=== PATIENT | female | born 1990 | race Caucasian/White ===

== ENCOUNTER 2017-08-07 12:32 | Inpatient (IN) | payer MEDICAID ==
[2017-08-07] MEDS ORDERED: CARBOPROST 250 MCG INJ IM (15:00)
[2017-08-07] MEDS ORDERED: BUTORPHANOL 2 MG INJ IV (15:00)
[2017-08-07] MEDS ORDERED: LIDOCAINE 1% (MPF) 30 ML INJ INJ (15:00)
[2017-08-07] MEDS: LACTATED RINGER'S 1,000 ML IV ×4 (15:00→23:00)
[2017-08-07] MEDS ORDERED: MISOPROSTOL 200 MCG TAB PR (15:00)
[2017-08-07] MEDS ORDERED: METHYLERGONOVINE 0.2 MG INJ IM (15:00)
[2017-08-07] MEDS: AMPICILLIN 2 GM/NS (PMX) 100 ML IV (15:01)
[2017-08-07 15:06] LABS: ADD MAN DIFF? NO
[2017-08-07] MEDS: OXYTOCIN 30 UNITS/LR 500 ML IV (15:06)
[2017-08-07 15:09] LABS: WHITE BLOOD COUNT 11.3 10^3/ul (4.8-10.8)
[2017-08-07 15:09] LABS: BASOPHILS % 0.3 % (0.0-2.0); EOSINOPHILS # 0.1 10^3/ul (0.0-0.5); EOSINOPHILS % 0.5 % (0.0-7.0); HEMATOCRIT 39.5 % (37.0-47.0); LYMPHOCYTES # 2.1 10^3/ul (0.8-2.9); LYMPHOCYTES % 18.8 % (15.0-51.0); MEAN CORPUSCULAR HGB CONC 32.9 g/dl (32.0-37.0); MEAN CORPUSCULAR VOLUME 84.9 fl (82.0-101.0); MEAN PLATELET VOLUME 9.7 fl (7.4-10.4); MONOCYTE # 0.7 10^3/ul (0.3-0.9); MONOCYTES % 6.4 % (0.0-11.0); NEUTROPHIL # 8.2 10^3/ul (1.6-7.5); NEUTROPHILS % 73.2 % (39.0-77.0); PLATELET COUNT 302 10^3/UL (140-415); RED BLOOD COUNT 4.65 10^6/ul (4.20-5.40); RED CELL DISTRIBUTION WIDTH 14.6 % (11.5-14.5)
[2017-08-07 15:55] LABS: HEPATITIS B SURFACE ANTIGEN NEGATIVE (NEGATIVE)
[2017-08-07 16:08] LABS: INR 0.94; PARTIAL THROMBOPLASTIN TIME 27.2 Sec (25.0-35.0); PROTIME 12.7 Sec (11.9-14.9)
[2017-08-07] MEDS: AMPICILLIN 1 GM/NS (PMX) 50 ML IV ×2 (18:53→22:58)
[2017-08-07 20:10] LABS: RAPID PLASMA REAGIN NONREACTIVE (NR)
[2017-08-07] MEDS ORDERED: FENTAnyl 2MCG/ML-ROPIV 0.2% 100 ML (22:47)
[2017-08-07] MEDS ORDERED: NALOXONE (0.4 MG/ML) INJ IV (23:30)
[2017-08-07] MEDS ORDERED: DIPHENHYDRAMINE 50 MG INJ IV (23:30)
[2017-08-07] MEDS ORDERED: ONDANSETRON 4 MG INJ IV (23:30)
[2017-08-08] MEDS: AMPICILLIN 1 GM/NS (PMX) 50 ML IV ×3 (03:07→10:39)
[2017-08-08] MEDS: FENTAnyl 2MCG/ML-ROPIV 0.2% 100 ML BAG EPI (06:08)
[2017-08-08] MEDS: LACTATED RINGER'S 1,000 ML IV (07:39)
[2017-08-08] MEDS: OXYTOCIN 30 UNITS/LR 500 ML IV ×3 (11:21→19:01)
[2017-08-08] MEDS ORDERED: DIBUCAINE 1% 30 GM OINT PR (13:30)
[2017-08-08] MEDS ORDERED: ONDANSETRON 4 MG INJ IV (13:30)
[2017-08-08] MEDS ORDERED: ACETAMINOPHEN 325 MG TAB PO (13:30)
[2017-08-08] MEDS ORDERED: OXYCODONE/ASPIRIN (4.88/325) TAB PO ×2 (13:30)
[2017-08-08] MEDS ORDERED: HYDROCODONE/APAP (5/325) TAB PO ×2 (13:30)
[2017-08-08] MEDS: BENZOCAINE 20% 56 ML SPRAY TOP (15:54)
[2017-08-08] MEDS: LANOLIN 7 GM TUBE TOP (15:55)
[2017-08-08] MEDS: WITCH HAZEL/GLYCERIN PAD PR (15:56)
[2017-08-08] MEDS: IBUPROFEN 600 MG TAB PO ×2 (18:18→23:42)
[2017-08-08] MEDS: SENNA/DOCUSATE NA (8.6MG/50MG) TAB PO (21:27)
[2017-08-09] MEDS: IBUPROFEN 600 MG TAB PO ×3 (05:33→17:33)
[2017-08-09 08:22] LABS: ADD MAN DIFF? NO
[2017-08-09 08:28] LABS: WHITE BLOOD COUNT 11.6 10^3/ul (4.8-10.8)
[2017-08-09 08:28] LABS: BASOPHILS % 0.2 % (0.0-2.0); EOSINOPHILS # 0.1 10^3/ul (0.0-0.5); EOSINOPHILS % 1.1 % (0.0-7.0); HEMATOCRIT 33.5 % (37.0-47.0); HEMOGLOBIN 11.1 g/dl (12.0-16.0); LYMPHOCYTES # 3.4 10^3/ul (0.8-2.9); LYMPHOCYTES % 29.2 % (15.0-51.0); MEAN CORPUSCULAR HEMOGLOBIN 27.8 pg (29.0-33.0); MEAN CORPUSCULAR HGB CONC 33.1 g/dl (32.0-37.0); MEAN CORPUSCULAR VOLUME 83.8 fl (82.0-101.0); MEAN PLATELET VOLUME 9.5 fl (7.4-10.4); MONOCYTE # 0.7 10^3/ul (0.3-0.9); MONOCYTES % 6.2 % (0.0-11.0); NEUTROPHIL # 7.2 10^3/ul (1.6-7.5); NEUTROPHILS % 62.4 % (39.0-77.0); PLATELET COUNT 225 10^3/UL (140-415); RED CELL DISTRIBUTION WIDTH 15.1 % (11.5-14.5)
[2017-08-09] MEDS: SENNA/DOCUSATE NA (8.6MG/50MG) TAB PO ×2 (08:41→21:00)
[2017-08-10] MEDS: IBUPROFEN 600 MG TAB PO ×3 (00:24→12:25)
[2017-08-10] MEDS: SENNA/DOCUSATE NA (8.6MG/50MG) TAB PO (08:52)
[2017-08-10] MEDS: MEASLES,MUMPS,RUBELLA VACCINE INJ SC* (09:00)
== END 2017-08-10 15:45 | disposition home or self-care (01) | DRG 775 ==
LOC: OBT 12:32 → L-D 12:32 → PP1 08-08 13:12 → OBT 13:05 → L-D 13:05
PROVIDERS: Obstetrics & Gynecology
PROC: 10E0XZZ Delivery of Products of Conception, External Approach (ICD-10-PCS; principal; 2017-08-08)
PROC: 0HQ9XZZ Repair Perineum Skin, External Approach (ICD-10-PCS; 2017-08-08)
DX: O70.0 First degree perineal laceration during delivery (principal); Z37.0 Single live birth; Z3A.40 40 weeks gestation of pregnancy
CPT/HCPCS: 62319; 76815; 85025; 85610; 85730; 86592; 86900; 86901; 87340